=== PATIENT | female | born 1965 | race Caucasian/White ===

== ENCOUNTER 2021-02-26 20:52 | Observation (INO) ==
[2021-02-26] MEDS ORDERED: Ondansetron ODT 4 MG TAB.RAPDIS SL ONE (22:31)
[2021-02-27 00:30] LABS: Basophils # 0.1 K/mcL (0.0-0.2); Basophils % 0.7 %; Eosinophils # 0.2 K/mcL (0.0-0.6); Eosinophils % 1.3 %; Hematocrit 32.8 % (35.3-44.9); Immature Granulocytes % 0.4 % (0-4); Lymphocytes # 2.4 K/mcL (0.6-4.6); Lymphocytes % 18.7 %; Mean Corpuscular HGB Conc 33.5 g/dL (31.6-35.5); Mean Corpuscular Hemoglobin 31.3 pg (28.0-33.3); Mean Corpuscular Volume 93.2 fL (83.0-100.0); Monocytes # 0.7 K/mcL (0.0-1.3); Monocytes % 5.7 %; Neutrophils # 9.4 K/mcL (1.6-8.9); Platelet Count 241 K/mcL (140-400); Red Blood Count 3.52 M/mcL (3.82-4.97); Segmented Neutrophils % 73.2 %; White Blood Count 12.8 K/mcL (4.3-11.1)
[2021-02-27 00:36] LABS: Alanine Aminotransferase 19 Units/L (7-52); Albumin 3.8 g/dL (3.5-5.7); Alkaline Phosphatase 66 Units/L (34-104); Aspartate Amino Transferase 17 Units/L (13-39); BUN/Creatinine Ratio 29 (6-26); Bilirubin,Total 0.2 mg/dL (0.3-1.0); Blood Urea Nitrogen 22 mg/dL (6-20); Calcium 8.6 mg/dL (8.6-10.3); Carbon Dioxide 23 mEq/L (23-29); Chloride 108 mEq/L (98-107); Glucose 150 mg/dL (70-105); Osmolality,Calculated 298 (280-300); Potassium 3.5 mEq/L (3.5-5.1); Sodium 141 mEq/L (136-145); eGFR For African Americans > 60 (> 60); eGFR For Non-African Americans > 60 (> 60)
[2021-02-27 01:42] LABS: Albumin/Globulin Ratio 1.7 (1.1-2.2); Globulin 2.2 g/dL (2.4-3.5)
[2021-02-27] MEDS ORDERED: Naloxone 0.4 MG/ML INJ IVP PRN (04:06)
[2021-02-27] MEDS ORDERED: Melatonin 3 MG TABLET PO PRN (04:06)
[2021-02-27] MEDS ORDERED: Ondansetron ODT 4 MG TAB.RAPDIS SL PRN (04:06)
[2021-02-27] MEDS ORDERED: 0.9 % Sodium Chloride 1,000 ML IVC SCH (04:15)
[2021-02-27] MEDS: *HR* Heparin 5,000 UNIT/ML VIAL SQ SCH ×3 (04:29→21:05)
[2021-02-27 08:11] LABS: Adenovirus Not Detected (Not Detect); Bordetella Pertussis Not Detected (Not Detect); Chlamydophila pneumoniae Not Detected (Not Detect); Coronavirus 229E Not Detected (Not Detect); Coronavirus HKU1 Not Detected (Not Detect); Coronavirus NL63 Not Detected (Not Detect); Coronavirus OC43 Not Detected (Not Detect); Human Metapneumovirus Not Detected (Not Detect); Human Rhinovirus/Enterovirus Not Detected (Not Detect); Influenza A Subtype 2009 H1 Not Detected (Not Detect); Influenza B Not Detected (Not Detect); Mycoplasma pneumoniae Not Detected (Not Detect); Parainfluenza Virus 1 Not Detected (Not Detect); Parainfluenza Virus 2 Not Detected (Not Detect); Parainfluenza Virus 3 Not Detected (Not Detect); Parainfluenza Virus 4 Not Detected (Not Detect); Respiratory Syncytial Virus Not Detected (Not Detect); SARS-CoV-2 Not Detected (Not Detect)
[2021-02-27] MEDS: Gabapentin 100 MG CAPSULE PO SCH ×2 (14:51→20:22)
[2021-02-27] MEDS ORDERED: *HR* Promethazine 25 MG/ML VIAL IM ONE (18:50)
[2021-02-27] MEDS: Budesonide/Formoterol 160/4.5 1 PUFF INH IH SCH (19:52)
[2021-02-27] MEDS: Famotidine 20 MG TABLET PO SCH (20:21)
[2021-02-27] MEDS: Topiramate 25 MG TABLET PO SCH (20:22)
[2021-02-27] MEDS: Fluticasone Propionate Nasal 50 MCG/SPRAY BOTTLE NS SCH (20:23)
[2021-02-28 03:06] LABS: Basophils % 0.4 %; Eosinophils # 0.1 K/mcL (0.0-0.6); Eosinophils % 1.8 %; Hematocrit 31.2 % (35.3-44.9); Hemoglobin 10.1 g/dL (11.5-15.4); Immature Granulocytes % 0.4 % (0-4); Lymphocytes # 2.5 K/mcL (0.6-4.6); Lymphocytes % 31.6 %; Mean Corpuscular HGB Conc 32.4 g/dL (31.6-35.5); Mean Corpuscular Hemoglobin 31.6 pg (28.0-33.3); Mean Corpuscular Volume 97.5 fL (83.0-100.0); Mean Platelet Volume 10.1 fL (9.4-12.4); Monocytes # 0.6 K/mcL (0.0-1.3); Monocytes % 7.5 %; Neutrophils # 4.6 K/mcL (1.6-8.9); Platelet Count 221 K/mcL (140-400); Red Cell Distribution Width 12.1 % (11.5-14.5); Segmented Neutrophils % 58.3 %; White Blood Count 7.9 K/mcL (4.3-11.1)
[2021-02-28 03:12] LABS: INR 1.1
[2021-02-28 03:15] LABS: Activated Partial Thrombo Time 27.5 Seconds (26.0-36.0)
[2021-02-28 03:26] LABS: BUN/Creatinine Ratio 24 (6-26); Blood Urea Nitrogen 17 mg/dL (6-20); Calcium 8.6 mg/dL (8.6-10.3); Carbon Dioxide 26 mEq/L (23-29); Chloride 105 mEq/L (98-107); Glucose 115 mg/dL (70-105); Osmolality,Calculated 288 (280-300); Potassium 3.5 mEq/L (3.5-5.1); Sodium 138 mEq/L (136-145); eGFR For African Americans > 60 (> 60); eGFR For Non-African Americans > 60 (> 60)
[2021-02-28] MEDS: *HR* Heparin 5,000 UNIT/ML VIAL SQ SCH ×3 (05:54→21:44)
[2021-02-28] MEDS: Gabapentin 100 MG CAPSULE PO SCH ×3 (07:40→20:33)
[2021-02-28] MEDS: Topiramate 25 MG TABLET PO SCH ×2 (07:40→20:33)
[2021-02-28] MEDS: Ascorbic Acid 500 MG TABLET PO SCH (07:40)
[2021-02-28] MEDS: Fluticasone Propionate Nasal 50 MCG/SPRAY BOTTLE NS SCH ×2 (07:42→20:34)
[2021-02-28] MEDS: hydroCHLOROthiazide 25 MG TABLET PO SCH (07:42)
[2021-02-28] MEDS: Budesonide/Formoterol 160/4.5 1 PUFF INH IH SCH ×2 (08:07→20:09)
[2021-02-28] MEDS: Famotidine 20 MG TABLET PO SCH (20:33)
[2021-03-01] MEDS: *HR* Heparin 5,000 UNIT/ML VIAL SQ SCH (05:49)
[2021-03-01 07:07] VITALS: BP 117/79
[2021-03-01] MEDS: hydroCHLOROthiazide 25 MG TABLET PO SCH (08:50)
[2021-03-01] MEDS: Topiramate 25 MG TABLET PO SCH (08:54)
[2021-03-01] MEDS: Gabapentin 100 MG CAPSULE PO SCH (08:54)
[2021-03-01] MEDS: Ascorbic Acid 500 MG TABLET PO SCH (08:55)
[2021-03-01] MEDS: Fluticasone Propionate Nasal 50 MCG/SPRAY BOTTLE NS SCH (08:55)
[2021-03-01] MEDS: Budesonide/Formoterol 160/4.5 1 PUFF INH IH SCH (10:25)
== END 2021-03-01 12:03 | disposition home health service (06) ==
LOC: 3NENU 20:52 → EMEROOARM 20:52 → SUATTDRO 02-27 02:38 → 3NENU 02-27 03:04
PROVIDERS: ADMIT Internal Medicine; ATTEND Internal Medicine